=== PATIENT | male | born 2000 | race African-American/Black ===

== ENCOUNTER 2023-05-13 20:55 | Emergency (ER) | payer SELFPAY ==
[~2023-05-13] VITALS: Ht 185.4 cm; Wt 77.1 kg
[2023-05-13 21:03] VITALS: BP 127/74; PULSE 88; RESP 16; TEMP 98.6; O2SAT 99
[2023-05-13] MEDS ORDERED: AMOX-494 MT (22:37)
[2023-05-13] MEDS ORDERED: IBUP-2030 MT (22:37)
[2023-05-13] MEDS ORDERED: TOPUD MT (22:37)
== END 2023-05-13 22:54 | disposition home or self-care (01) ==
LOC: ER 20:55
DX: J03.90 Acute tonsillitis, unspecified (principal); H66.91 Otitis media, unspecified, right ear
CPT/HCPCS: 99283